=== PATIENT | male | born 1980 | race Caucasian/White ===

== ENCOUNTER 2024-02-21 22:19 | Emergency (ER) | payer BC ==
[2024-02-21] MEDS: Proparacaine 0.5% Ophth Soln 15 ML Bottle EYERT STA (22:41)
[2024-02-21] MEDS: Ciprofloxacin 0.3% Ophth Soln 2.5 ML Bottle EYERT STA (23:04)
== END 2024-02-21 23:06 | disposition home or self-care (01) ==
LOC: MW.ED 22:19
DX: T15.91XA Foreign body on external eye, part unspecified, right eye, initial encounter (principal); S05.01XA Injury of conjunctiva and corneal abrasion without foreign body, right eye, initial encounter; F17.210 Nicotine dependence, cigarettes, uncomplicated; Z75.8 Other problems related to medical facilities and other health care
CPT/HCPCS: 65205; 99283; 99283-25; J3490